=== PATIENT | female | born 1950 | race Caucasian/White ===

== ENCOUNTER 2017-09-04 20:45 | Emergency (ER) | payer MEDICARE ==
[~2017-09-04] VITALS: Ht 160 cm; Wt 73.9 kg
[~2017-09-04 20:45] MED LIST: ALBU.083IS IH; ALBU90OI INH; ALPR.25 PO; BILBERRY PO; BUDE32NIS; CALCAVITD PO; CHOLECALCIFEROL PO; CRANBERRY PO; ESOM20 PO; ESTMEDA PO; ESTR.625 PO; ESTR2 PO; FEXO180 PO; FISH OIL 1200 MG PO; FISH OIL PO; FLUSAL2505 IH; FLUT220OIA IH; GINGER 550 MG PO; GINGER PO; GLUCHON PO; KETO5OP OU; LORA1 PO; LUTEIN PO; METO10 PO; METOCLOPRAM PO; NAPR220 PO; NEXIUM PO; OXCA300 PO; Prednisone20 MG PO; VIT E PO; Vitamin C100 M1 PO; [UNRECOGNIZED DRUG - OTHER]
[2017-09-04] MEDS ORDERED: Prednisone20 MG PO (23:05)
== END 2017-09-04 23:15 | disposition home or self-care (01) ==
LOC: ER 20:45
DX: T78.1XXA Other adverse food reactions, not elsewhere classified, initial encounter (principal); L27.2 Dermatitis due to ingested food; R06.2 Wheezing; Z88.8 Allergy status to other drugs, medicaments and biological substances; Z91.010 Allergy to peanuts; Z88.0 Allergy status to penicillin; Z91.02 Food additives allergy status; Z91.018 Allergy to other foods; Z79.899 Other long term (current) drug therapy; Z79.52 Long term (current) use of systemic steroids; J45.909 Unspecified asthma, uncomplicated
CPT/HCPCS: 36415; 94640; 96374; 96375; 96376; 99284; J1200; J2930; J3490

== ENCOUNTER 2019-06-02 11:21 | Emergency (ER) | payer MEDICARE ==
[~2019-06-02] VITALS: Ht 160 cm; Wt 72.6 kg
[2019-06-02] MEDS ORDERED: Prednisone20 MG PO (13:04)
== END 2019-06-02 14:30 | disposition home or self-care (01) ==
LOC: ER 11:21
DX: T78.2XXA Anaphylactic shock, unspecified, initial encounter (principal); R06.2 Wheezing; Z88.8 Allergy status to other drugs, medicaments and biological substances; Z91.010 Allergy to peanuts; Z88.0 Allergy status to penicillin; Z88.6 Allergy status to analgesic agent; Z79.899 Other long term (current) drug therapy; Z79.52 Long term (current) use of systemic steroids; J45.909 Unspecified asthma, uncomplicated
CPT/HCPCS: 36415; 94644; 96361; 96374; 96375; 99283-25; J0171; J1100; J7030

== ENCOUNTER 2020-10-04 11:07 | Emergency (ER) | payer MEDICARE ==
[~2020-10-04] VITALS: Ht 165.1 cm; Wt 69.8 kg
[2020-10-04] MEDS ORDERED: EPIPEN0.3 MG/0.1 IM (13:32)
== END 2020-10-04 13:52 | disposition home or self-care (01) ==
LOC: ER 11:07
DX: T78.2XXA Anaphylactic shock, unspecified, initial encounter (principal); Z91.02 Food additives allergy status; Z88.6 Allergy status to analgesic agent; Z88.0 Allergy status to penicillin; Z91.018 Allergy to other foods; Z91.09 Other allergy status, other than to drugs and biological substances; Z88.8 Allergy status to other drugs, medicaments and biological substances; Z79.899 Other long term (current) drug therapy
CPT/HCPCS: 36415; 94640; 96372-59; 96374; 96375; 99284-25; J0171; J2930

== ENCOUNTER 2020-10-05 11:44 | Emergency (ER) | payer MEDICARE ==
[~2020-10-05] VITALS: Ht 160 cm; Wt 79.4 kg
[~2020-10-05 11:44] MED LIST changes: +EPIPEN0.3 MG/0.1 IM
== END 2020-10-05 14:50 | disposition home or self-care (01) ==
LOC: ER 11:44
DX: T80.52XA Anaphylactic reaction due to vaccination, initial encounter (principal); T50.B95A Adverse effect of other viral vaccines, initial encounter; Z79.899 Other long term (current) drug therapy; Y84.8 Other medical procedures as the cause of abnormal reaction of the patient, or of later complication, without mention of misadventure at the time of the procedure
CPT/HCPCS: 93005; 93010; 99283-25

== ENCOUNTER 2020-12-05 21:38 | Emergency (ER) | payer MEDICARE ==
[~2020-12-05] VITALS: Ht 160 cm; Wt 79.4 kg
[2020-12-06] MEDS ORDERED: Vibramycin100 MG PO (01:49)
== END 2020-12-06 02:03 | disposition home or self-care (01) ==
LOC: ER 21:38
DX: L03.116 Cellulitis of left lower limb (principal); S80.12XA Contusion of left lower leg, initial encounter; Z88.0 Allergy status to penicillin; Z88.6 Allergy status to analgesic agent; Z91.018 Allergy to other foods; Z91.02 Food additives allergy status; Z88.7 Allergy status to serum and vaccine; X58.XXXA Exposure to other specified factors, initial encounter
CPT/HCPCS: 73600; 99283-25; A9270

== ENCOUNTER → 2021-02-19 | Outpatient (CLI) | payer MEDICARE ==
[~2021-02-19] MED LIST changes: +Vibramycin100 MG PO
[2021-02-21 10:47] LABS: Stool Occult Bld Immuno 1 Negative (NEGATIVE); Stool Occult Bld Immuno 2 Negative (NEGATIVE); Stool Occult Bld Immuno 3 Positive (NEGATIVE)
== END | disposition home or self-care (01) ==
LOC: LAB SHORT 08:20 → LAB 08:20
PROVIDERS: Student in an Organized Health Care Education/Training Program
DX: Z12.11 Encounter for screening for malignant neoplasm of colon (principal)
CPT/HCPCS: G0328

== ENCOUNTER 2021-06-15 14:10 | Emergency (ER) | payer MEDICARE ==
[~2021-06-15] VITALS: Ht 160 cm; Wt 79.4 kg
[~2021-06-15 14:10] MED LIST changes: +EUTHYROX50 MCG; +FLONASE ALLERG9.9 ML; +Flovent 220 Ora12 GM
[2021-06-15 16:42] LABS: BASOPHILS ABSOLUTE AUTO 0.04 K/mm3 (0.00-0.23); BASOPHILS PERCENT AUTO 1 % (0-2); EOSINOPHILS ABSOLUTE AUTO 0.08 K/mm3 (0.00-0.68); EOSINOPHILS PERCENT AUTO 2 % (0-6); Hematocrit 39.7 % (33.0-51.0); Hemoglobin 13.6 g/dL (11.5-16.0); IMMATURE GRAN ABSOLUTE AUTO 0.01 K/mm3 (0.00-0.10); IMMATURE GRAN PERCENT AUTO 0 % (0-1); LYMPHOCYTES ABSOLUTE AUTO 1.48 K/mm3 (0.84-5.20); LYMPHOCYTES PERCENT AUTO 27 % (21-46); MONOCYTES ABSOLUTE AUTO 0.39 K/mm3 (0.16-1.47); MONOCYTES PERCENT AUTO 7 % (4-13); Mean Corpuscular HGB 33.5 pg (26.0-34.0); Mean Corpuscular HGB Conc 34.3 g/dL (31.5-36.5); Mean Corpuscular Volume 98 fL (80-100); Mean Platelet Volume 9.2 fL (9.1-12.4); NEUTROPHILS ABSOLUTE AUTO 3.44 K/mm3 (1.96-9.15); NEUTROPHILS PERCENT AUTO 63 % (41-73); Platelet Count 272 K/mm3 (150-400); RDW Coefficient Variation 12.8 % (11.7-14.2); RDW Standard Deviation 46.1 fL (35.1-46.3); Red Blood Cell Count 4.06 M/mm3 (3.80-5.20); White Blood Cell Count 5.44 K/mm3 (4.00-11.30)
[2021-06-15 17:04] LABS: Magnesium, Blood 2.2 mg/dL (1.6-2.4)
[2021-06-15 17:06] LABS: Alanine Aminotransfer (ALT/SGP 34 U/L (12-78); Albumin, Blood 3.4 g/dL (3.4-5.0); Alk Phos 75 U/L (50-136); Anion Gap 7 mmol/L (6-16); Aspartate Aminotrans (AST/SGOT 25 U/L (12-37); Bilirubin, Total 1.5 mg/dL (0.1-1.0); Blood Urea Nitrogen 9 mg/dL (8-24); Bun/Creatinine Ratio 15.8 (12.0-20.0); CO2, Blood 24 mmol/L (21-32); Calcium, Blood 8.6 mg/dL (8.5-10.1); Chloride, Blood 112 mmol/L (98-108); Creatinine, Blood 0.57 mg/dL (0.40-1.00); Globulin, Blood 3.4 g/dL (2.2-4.0); Glomerular Filtration Rate >60 (60-); Glucose, Blood 84 mg/dL (70-99); Potassium, Blood 3.9 mmol/L (3.5-5.5); Sodium, Blood 143 mmol/L (136-145); Total Protein, Blood 6.8 g/dL (6.4-8.2)
== END 2021-06-15 18:03 | disposition home or self-care (01) ==
LOC: ER 14:10
PROVIDERS: Physician Assistant
DX: R25.1 Tremor, unspecified (principal); Z88.8 Allergy status to other drugs, medicaments and biological substances; Z88.0 Allergy status to penicillin; Z88.7 Allergy status to serum and vaccine; Z88.6 Allergy status to analgesic agent; Z91.040 Latex allergy status; Z91.018 Allergy to other foods; Z79.899 Other long term (current) drug therapy; J45.909 Unspecified asthma, uncomplicated
CPT/HCPCS: 80053; 83735; 85025; 93005; 93010; 96374; 99284-25; J2060; J7120

== ENCOUNTER 2022-01-13 00:42 | Emergency (ER) | payer MEDICARE ==
[~2022-01-13] VITALS: Ht 160 cm; Wt 77.1 kg
[2022-01-13] MEDS ORDERED: ALBU90OI INH (05:07)
[2022-01-13] MEDS ORDERED: PRED20 PO (05:07)
== END 2022-01-13 05:46 | disposition home or self-care (01) ==
LOC: ER 00:42
DX: T78.07XA Anaphylactic reaction due to milk and dairy products, initial encounter (principal); I10 Essential (primary) hypertension; R06.1 Stridor; J45.901 Unspecified asthma with (acute) exacerbation; F41.9 Anxiety disorder, unspecified; R56.9 Unspecified convulsions; Z91.018 Allergy to other foods; Z88.0 Allergy status to penicillin; Z88.8 Allergy status to other drugs, medicaments and biological substances; Z91.040 Latex allergy status; Z91.09 Other allergy status, other than to drugs and biological substances
CPT/HCPCS: 70360; 71045; 93005; 93010; 94640; 94644; 94664; J0171; J1200; J2060; J2930

== ENCOUNTER 2024-04-13 00:04 | Observation (INO) | payer MEDICARE ==
[2024-04-13] VITALS (29 sets, daily range): BP systolic 104–149; BP diastolic 58–86
[~2024-04-13] VITALS: Ht 162.6 cm; Wt 80.0 kg
[~2024-04-13 00:04] MED LIST changes: +CHLORPHEN SR12 MG PO; +CITRACAL-D3 ER1 EAC1 PO; +EPIPEN0.3 MG/0.3 IM; +FOLI1 PO; +Hair, Skin & N1 EACH PO; +KETOTIFEN EYE DROPS; +LEVSOD25 PO; +MERIBIN5 MG PO; +PRED20 PO; +VITAMIN D3; +ZINC15 PO
[2024-04-13 00:41] LABS: BASOPHILS ABSOLUTE AUTO 0.06 K/mm3 (0.00-0.23); BASOPHILS PERCENT AUTO 1 % (0-2); EOSINOPHILS ABSOLUTE AUTO 0.37 K/mm3 (0.00-0.68); EOSINOPHILS PERCENT AUTO 6 % (0-6); Hematocrit 40.6 % (33.0-51.0); Hemoglobin 13.8 g/dL (11.5-16.0); IMMATURE GRAN ABSOLUTE AUTO 0.01 K/mm3 (0.00-0.10); IMMATURE GRAN PERCENT AUTO 0 % (0-1); LYMPHOCYTES ABSOLUTE AUTO 2.49 K/mm3 (0.84-5.20); LYMPHOCYTES PERCENT AUTO 39 % (21-46); MONOCYTES PERCENT AUTO 9 % (4-13); Mean Corpuscular HGB 33.2 pg (26.0-34.0); Mean Corpuscular Volume 98 fL (80-100); Mean Platelet Volume 8.8 fL (9.1-12.4); NEUTROPHILS ABSOLUTE AUTO 2.84 K/mm3 (1.96-9.15); NEUTROPHILS PERCENT AUTO 45 % (41-73); Platelet Count 330 K/mm3 (150-400); RDW Coefficient Variation 13.1 % (11.7-14.2); RDW Standard Deviation 47.3 fL (35.1-46.3); Red Blood Cell Count 4.16 M/mm3 (3.80-5.20); White Blood Cell Count 6.37 K/mm3 (4.00-11.30)
[2024-04-13 01:03] LABS: Albumin, Blood 3.7 g/dL (3.4-5.0); Albumin/Globulin Ratio 0.9 (0.8-1.8); Bilirubin, Total 0.5 mg/dL (0.1-1.0); Bun/Creatinine Ratio 21.8 (12.0-20.0); Calcium, Blood 8.6 mg/dL (8.5-10.1); Creatinine, Blood 0.73 mg/dL (0.40-1.00); Globulin, Blood 3.9 g/dL (2.2-4.0); Potassium, Blood 3.2 mmol/L (3.5-5.5); Total Protein, Blood 7.6 g/dL (6.4-8.2)
[2024-04-13] MEDS ORDERED: Famotidine 10 MG/ML 2ML Vial IV ONE (01:10)
[2024-04-13] MEDS ORDERED: DiphenhydrAMINE HCl 50 MG/ML 1ML Vial IV ONE (01:10)
[2024-04-13] MEDS ORDERED: MethylPREDNISolone Sod Succ 125 MG Vial IV ONE (01:10)
[2024-04-13] MEDS ORDERED: Nitroglycerin 0.4 MG SUBL SL PRN (02:10)
[2024-04-13] MEDS ORDERED: FLU VACC TS2024-25(6MOS UP)/PF 45 MCG/0.5 ML SYRINGE IM SCH (02:10)
[2024-04-13] MEDS ORDERED: FentaNYL Citrate 50 MCG/ML 2 ML Injection IV PRN (02:10)
[2024-04-13] MEDS ORDERED: NS 1,000 ML IV SCH (02:15)
[2024-04-13] MEDS ORDERED: Ondansetron HCl 2 MG / ML 2ML Vial IV PRN (02:15)
[2024-04-13] MEDS ORDERED: Potassium Chl 20MEQ/Water100ML 100 ML IV SCH (03:30)
[2024-04-13 04:17] LABS: BASOPHILS ABSOLUTE AUTO 0.05 K/mm3 (0.00-0.23); BASOPHILS PERCENT AUTO 1 % (0-2); EOSINOPHILS ABSOLUTE AUTO 0.06 K/mm3 (0.00-0.68); EOSINOPHILS PERCENT AUTO 1 % (0-6); Hematocrit 42.2 % (33.0-51.0); Hemoglobin 13.9 g/dL (11.5-16.0); IMMATURE GRAN ABSOLUTE AUTO 0.04 K/mm3 (0.00-0.10); IMMATURE GRAN PERCENT AUTO 1 % (0-1); LYMPHOCYTES PERCENT AUTO 19 % (21-46); MONOCYTES ABSOLUTE AUTO 0.15 K/mm3 (0.16-1.47); MONOCYTES PERCENT AUTO 3 % (4-13); Mean Corpuscular HGB 32.4 pg (26.0-34.0); Mean Corpuscular HGB Conc 32.9 g/dL (31.5-36.5); Mean Corpuscular Volume 98 fL (80-100); Mean Platelet Volume 8.8 fL (9.1-12.4); NEUTROPHILS ABSOLUTE AUTO 4.45 K/mm3 (1.96-9.15); NEUTROPHILS PERCENT AUTO 76 % (41-73); Platelet Count 364 K/mm3 (150-400); RDW Coefficient Variation 13.1 % (11.7-14.2); RDW Standard Deviation 47.1 fL (35.1-46.3); Red Blood Cell Count 4.29 M/mm3 (3.80-5.20); White Blood Cell Count 5.85 K/mm3 (4.00-11.30)
[2024-04-13 04:35] LABS: Albumin, Blood 3.7 g/dL (3.4-5.0); Albumin/Globulin Ratio 0.9 (0.8-1.8); Bilirubin, Total 0.6 mg/dL (0.1-1.0); Bun/Creatinine Ratio 21.1 (12.0-20.0); Calcium, Blood 8.8 mg/dL (8.5-10.1); Creatinine, Blood 0.71 mg/dL (0.40-1.00); Potassium, Blood 3.4 mmol/L (3.5-5.5); Total Protein, Blood 7.7 g/dL (6.4-8.2)
--- NOTE | 2024-04-13 06:02 | NUR ---
END OF SHIFT SUMMARY- Patient arrived from ER at 0329 in no apparent distress, VSS on RA. Denies chest pain/pressure at this time. NSR on telemetry. Brought up with all belongings, son at bedside to assist RN/MD with admission questions. NPO pending cardiology consult this AM- + stress test outpatient, possible angiogram anticipated by hospitalist. Patient removed all clothing except gown. Multiple allergies and high sensitivity to smells. Sign placed to see RN before entering due to patient's allergies being severely aggravated by cologne/perfume- which is what happened down in the ER earlier requiring solumedrol and benadryl. No more signs of an allergic reaction at this time. 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 IV fluids infusing at 75/hr with K+ replacement. Patient getting OOB with SBA, denies dizziness. A&Ox4
[2024-04-13] MEDS ORDERED: Albuterol HFA200 ACT/6.7 GM INH INH PRN (06:30)
[2024-04-13] MEDS ORDERED: Levothyroxine Sodium 0.05 MG Tab PO SCH ×2 (08:00→08:19)
[2024-04-13] MEDS ORDERED: Fluticasone 0.05% Nasal Spray SCH (09:00)
[2024-04-13] MEDS ORDERED: Enoxaparin 40 MG/0.4 ML SYR SC SCH (09:00)
[2024-04-13] MEDS ORDERED: Heparin Sodium 1000 Units/ML 10ML MDV ONE ×2 (11:08→12:36)
[2024-04-13] MEDS ORDERED: NS 1,000 ML IV ONE ×2 (11:08→12:37)
[2024-04-13] MEDS ORDERED: Verapamil HCL 2.5 MG/ML 2ML Injection ONE (11:08)
[2024-04-13] MEDS ORDERED: Nitroglycerin 2 MG/20 ML BTL ONE (11:08)
[2024-04-13] MEDS ORDERED: NS 250 ML IV ONE (11:08)
--- NOTE | 2024-04-13 12:58 | NUR ---
NURSE NOTE PT TRANSFERED VIA WHEELCHAIR TO CATHLAB BY FLATWORK FOLDER RN. PT OUT OF ROOM AT THIS TIME.
[2024-04-13] MEDS ORDERED: FentaNYL Citrate 50 MCG/ML 2 ML Injection ONE ×2 (13:27→13:57)
[2024-04-13] MEDS ORDERED: Midazolam HCl 1MG / ML 2ML Vial ONE (13:27)
--- NOTE | 2024-04-13 14:50 | NUR ---
NURSE NOTE PT BACK FROM CATHLAB, BEDSIDE REPORT, PT VSS STABLE, A+OX4. FAMILY AT BEDSIDE. CALL LIGHT IN REACH
--- NOTE | 2024-04-13 15:22 | NUR ---
NURSE NOTE PT RIGHT RADIAL ACCESS POINT, SITE HAS TR BAND IN PLACE WITH 7CCS IN BAND. SITE FREE OF REDNESS, HEMATOMA, CIRCULATION PRESENT DISTAL TO SITE. SPO2 99%, VSS STABLW, FAMILY AT BEDSIDE, CALL LIGHT IN REACH.
--- NOTE | 2024-04-13 16:10 | NUR ---
Spiritual care visit conducted. Patient is lying in bed recovering from an angiogram. Her son and dtr are bedside. They share about their life history, their hopes and what inspires them. I normalize their experience, reinforce helpful attitudes and practices and provided therapeutic listening and a calming presence. Patient repsonded well and showed signs of an elevated mood. I will continue to remain available.
--- NOTE | 2024-04-13 18:55 | NUR ---
ASSUMED CARE @ APPROX 1535 PT A*O X 4, ABLE TO MAKE NEEDS KNOWN AND OBEY COMMANDS. PT HAS FAMILY AT BEDSIDE. TR BAND RECOVERED VIA ORDERS, NO OOZING/SWELLING/ OR SIGNS OF HEMATOMA AT THIS TIME. VSS. CARDIOLOGY ROUNDED ON PT @ APPROX 1600 AND MADE THIS RN AWARE OF POSSIBLE AIR EMBOLI THAT HAPPENED DURING PROCEDURE AND HIS RECOMENDATION OF HYPER OXYGENATION AND TO LEAVE PT ON NC @ 2L O2 THROUGHOUT THE NIGHT TO MAINTAIN SPO2 100%. POST PROCEDURE EKG TAKEN AND CADIOLOGY NOTIFIED.
--- NOTE | 2024-04-13 20:52 | NUR ---
ASSUMPTION OF CARE AFTER RECEIVING REPORT FROM ROSALIE RN, THIS RN ASSUMED CARE AT APPROX 1915. PATIENT ALERT AND ORIENTED X4. COMMUNICATES NEEDS EFFECTIVELY. CAN EXPERIENCE EPISODES OF INCREASED ANXIETY - EASES WITH THERAPUETIC DISCUSSION AT THIS TIME. PERRLA. NO TREMOR NOTED. TELEMETRY SHOWING SINUS, SINUS ANNE 50s-60s. BP STABLE, SBP 100s-120s. MAP >65. DENIES CHEST PAIN, PRESSURE. S/P ANGIO W/ R RADIAL SITE. SITE RECOVERED. TR BAND REMOVED AT APPROX 1999. TEGADERM DX APPLIED. SITE WNL - SOFT, NONTENDER. NO HEMATOMA NOTED. ARMBOARD IN PLACE. ON 4L VIA NC, SATs 100%. ORDER IN PLACE PER MD SOMMER HYPEROXYGENATION POST ANGIO. RT AWARE. DENIES SHORTNESS OF BREATH. RR EVEN, UNLABORED. IS A SBA WITH MOBILITY FOR LINE, DEVICE MANAGEMENT. CALL LIGHT IN REACH.
[2024-04-14 03:44] VITALS: BP 121/67
--- NOTE | 2024-04-14 05:11 | NUR ---
SHIFT SUMMARY NO ACUTE EVENTS OVERNIGHT. PATIENT SLEPT T/O NIGHT, EASILY AROUSABLE WITH VERBAL STIMULI. NO EPISODES OF INCREASED ANXIETY - NO S/S OF SEIZURE LIKE ACTIVITY. TELEMETRY SHOWING SINUS, SINUS ANNE 50s-70s. BP STABLE, SBP 100s-130s. MAP >65. DENIES CHEST PAIN, PRESSURE. R RADIAL SITE REMAINS WNL - SITE SOFT, NONTENDER. NO HEMATOMA. TEGADERM DX C/D/I. ARMBOARD IN PLACE. REMAINS ON 4L VIA NC TO SUSTAIN SATs 100%. RR EVEN, UNLABORED. DENIES SHORTNESS OF BREATH. UP TO RESTROOM WITH SBA. VOIDING. REPOSITIONS HERSELF INDEPENDENTLY IN BED. CALL LIGHT IN REACH. WILL CONTINUE TO MONITOR AND REPORT TO ONCOMING RN.
[2024-04-14 06:29] LABS: BASOPHILS ABSOLUTE AUTO 0.04 K/mm3 (0.00-0.23); BASOPHILS PERCENT AUTO 0 % (0-2); EOSINOPHILS ABSOLUTE AUTO 0.08 K/mm3 (0.00-0.68); EOSINOPHILS PERCENT AUTO 1 % (0-6); Hematocrit 35.8 % (33.0-51.0); Hemoglobin 11.9 g/dL (11.5-16.0); IMMATURE GRAN ABSOLUTE AUTO 0.01 K/mm3 (0.00-0.10); IMMATURE GRAN PERCENT AUTO 0 % (0-1); LYMPHOCYTES ABSOLUTE AUTO 1.97 K/mm3 (0.84-5.20); LYMPHOCYTES PERCENT AUTO 19 % (21-46); MONOCYTES ABSOLUTE AUTO 0.92 K/mm3 (0.16-1.47); MONOCYTES PERCENT AUTO 9 % (4-13); Mean Corpuscular HGB 33.3 pg (26.0-34.0); Mean Corpuscular HGB Conc 33.2 g/dL (31.5-36.5); Mean Corpuscular Volume 100 fL (80-100); NEUTROPHILS ABSOLUTE AUTO 7.23 K/mm3 (1.96-9.15); NEUTROPHILS PERCENT AUTO 71 % (41-73); Platelet Count 270 K/mm3 (150-400); RDW Coefficient Variation 13.5 % (11.7-14.2); Red Blood Cell Count 3.57 M/mm3 (3.80-5.20); White Blood Cell Count 10.25 K/mm3 (4.00-11.30)
[2024-04-14 06:50] LABS: Bun/Creatinine Ratio 21.1 (12.0-20.0); Calcium, Blood 8.1 mg/dL (8.5-10.1); Creatinine, Blood 0.71 mg/dL (0.40-1.00); Potassium, Blood 3.8 mmol/L (3.5-5.5)
[2024-04-14 08:50] VITALS: BP 135/76
[2024-04-14 11:21] VITALS: BP 147/83
--- NOTE | 2024-04-14 12:07 | NUR ---
DISCHARG SUMMARY PT A&O X 4, ABLE TO MAKE NEEDS KNOWN AND OBEY COMMANDS. PT ABLE TO WALK BACK AND FORTH FROM BED TO BATHROOM. PT DENIED CHEST P/P DURING THIS SHIFT, HR 50'S-70'S SINUS RHYTHM. LUNGS SOUND CLEAR AND O2 WAS REMOVED THIS AM AND PT SPO2 100% ON ROOM AIR. PT EDUCATED ON RADIAL SITE AND ANGIO AFTER CARE, AND TO KEEP THE ARM BOARD ON ONE MORE NIGHT AND TAKE IT OFF TOMORROW 04/15. PT EDUCATED ON FOLLOW UP APPOINTMENTS AND THEIR TIMES, IF PT CANNOT MAKE THOSE APPOITMENTS SHE IS TO CALL THEM AND RESCHEDULE. PT VERBALIZED UNDERSTANDING. PT BECAME TEARFUL THIS AM WHEN TALKING WITH CARDIOLODY THIS AM WHEN DISCUSSING THERE WAS NO BLOCKAGE AND THAT THERE COULD BE MANY POTENTIAL CAUSES FOR HER CHEST DISCOMFORT AND THAT IT WILL NEED TO BE FOLLOWED UP OUT PAITENT. THIS RN HELPED WALK THE PT OUT TO THE CAR WHERE HER SON WAS TO PICK HER UP. PT VERBALIZED THAT WALKING FELT FINE AND NO CHEST PAIN/PRESSURE OR SOB.
== END 2024-04-14 11:39 | disposition home or self-care (01) ==
LOC: ER 00:04 → PCU 00:05
PROVIDERS: Internal Medicine; Student in an Organized Health Care Education/Training Program; ADMIT Internal Medicine
DX: R07.89 Other chest pain (principal); I10 Essential (primary) hypertension; E03.9 Hypothyroidism, unspecified; E78.5 Hyperlipidemia, unspecified; K21.9 Gastro-esophageal reflux disease without esophagitis; G40.909 Epilepsy, unspecified, not intractable, without status epilepticus; Q79.60 Ehlers-Danlos syndrome, unspecified; Z79.890 Hormone replacement therapy; Z79.899 Other long term (current) drug therapy; Z88.6 Allergy status to analgesic agent; Z88.0 Allergy status to penicillin; Z88.7 Allergy status to serum and vaccine; Z91.018 Allergy to other foods; Z91.048 Other nonmedicinal substance allergy status; Z91.040 Latex allergy status; Z98.51 Tubal ligation status; Z90.49 Acquired absence of other specified parts of digestive tract; Z90.710 Acquired absence of both cervix and uterus
CPT/HCPCS: 36415; 71046; 76937; 80048; 80053; 84484; 85025; 85347; 92978; 93005; 93010; 93246; 93306; 93458; 94760; 94762; 96365; 96366; 96372; 96374-59; 96375-59; 99152; 99153; 99285-25; A9270; C1753; C1769; C1887; C1894; G0378; J1200; J1644; J1650; J2250; J2919; J3010; J3480; J7030; J7050; Q9967

== ENCOUNTER 2025-05-12 14:46 | Emergency (ER) | payer MEDICARE ==
[~2025-05-12] VITALS: Ht 162.6 cm; Wt 81.7 kg
[2025-05-12] MEDS ORDERED: DiphenhydrAMINE HCl 50 MG/ML 1ML Vial IV ONE (15:00)
[2025-05-12] MEDS ORDERED: Dexamethasone Sod Phos 10 MG/ML 1ML VIAL IV ONE (15:00)
[2025-05-12 17:00] VITALS: BP 122/60
== END 2025-05-12 17:08 | disposition home or self-care (01) ==
LOC: ER 14:46
DX: T78.40XA Allergy, unspecified, initial encounter (principal); F41.9 Anxiety disorder, unspecified; I10 Essential (primary) hypertension; G40.909 Epilepsy, unspecified, not intractable, without status epilepticus; J45.998 Other asthma; Z91.02 Food additives allergy status; Z91.040 Latex allergy status; Z91.018 Allergy to other foods; Z88.0 Allergy status to penicillin; Z88.8 Allergy status to other drugs, medicaments and biological substances; Z88.7 Allergy status to serum and vaccine; Z79.890 Hormone replacement therapy; Z79.899 Other long term (current) drug therapy
CPT/HCPCS: 96374; 96375; 99285-25; J1100; J1200